=== PATIENT | male | born 1995 | race American Indian/Alaskan Native ===

== ENCOUNTER 2016-10-02 12:50 | Emergency (ER) | payer SELFPAY ==
[2016-10-02 14:03] VITALS: BP 135/81
== END 2016-10-02 20:24 | disposition left against medical advice (07) ==
LOC: ED 12:50
DX: A64 Unspecified sexually transmitted disease (principal); Z53.21 Procedure and treatment not carried out due to patient leaving prior to being seen by health care provider

== ENCOUNTER 2016-10-07 09:57 | Emergency (ER) | payer SELFPAY ==
[2016-10-07 10:05] VITALS: BP 135/80
--- NOTE | 2016-10-07 10:20 | Emergency Department Report ---
ED Dysuria HPI - HPI Chief Complaint: Urogenital-Male Stated Complaint: POSS STD Time Seen by Provider: 10/07/16 10:17 Duration: 2 Days Location of Discomfort: Urethra (dysuria) Severity: Mild Symptoms: Dysuria: Yes, Frequency: No, Suprapubic Pain: No, Flank Pain: No, Fever: No, Hematuria: No, Abdominal Pain: No, Previous UTI's: No ED Review of Systems ROS: Stated complaint: POSS STD Other details as noted in HPI Comment: All other systems reviewed and negative Constitutional: no symptoms reported Eyes: as per HPI ENT: as per HPI Respiratory: no symptoms reported Cardiovascular: as per HPI Endocrine: no symptoms reported Gastrointestinal: as per HPI. denies: abdominal pain, nausea, vomiting, diarrhea, constipation, hematemesis, melena, hematochezia Genitourinary: as per HPI, dysuria, discharge (white), other (1 partner, she will not talk to him about std). denies: urgency, frequency, hematuria, testicular pain, testicular mass Musculoskeletal: as per HPI. denies: back pain, joint swelling Skin: as per HPI. denies: rash, lesions Neurological: as per HPI. denies: headache, weakness Psychiatric: as per HPI. denies: anxiety, depression Hematological/Lymphatic: as per HPI. denies: easy bleeding ED Past Medical Hx - Past Medical History Previous Medical History?: No - Surgical History Past Surgical History?: No Additional Surgical History: CYST REMOVED LEFT WRIST - Family History Family history: no significant - Social History Smoking Status: Never Smoker Substance Use Type: Alcohol, Marijuana - Medications Home Medications: Home Medications Medication Instructions Recorded Confirmed Last Taken Type No Known Home Medications [No 10/02/16 10/07/16 Unknown History Reported Home Medications] Dysuria Exam - Exam General: Vital signs noted. No distress. Alert and acting appropriately. Exam: No Moist Mucous Membranes, No CVA Tenderness, No Abdominal Tenderness, No Rigidity or Guarding Exam: ua noted ED Course Vital Signs 10/07/16 10:02 Temperature 98.2 F Pulse Rate 93 H Respiratory 17 Rate Blood Pressure 135/80 O2 Sat by Pulse 100 Oximetry - Reevaluation(s) Reevaluation #1: 10/07/16 10:58 dysuria white dc no testicular or abd pain no back pain no cva tenderness 1 sex partner female no fever non ill or non septic appearing ED Medical Decision Making - Differential Diagnosis uti, k stone, vs std Critical care attestation.: If time is entered above; I have spent that time in minutes in the direct care of this critically ill patient, excluding procedure time. ED Disposition Clinical Impression: STD (male), Dysuria Disposition: DC-01 TO HOME OR SELFCARE Is pt being admited?: No Does the pt Need Aspirin: No Condition: Stable Instructions: Safe Sex (ED), Sexually Transmitted Diseases (ED), Sexually Transmitted Diseases in Adolescents (ED) Additional Instructions: safe sex Referrals: PRIMARY CARE, [Primary Care Provider] - 3-5 Days Time of Disposition: 11:00
[2016-10-07 10:53] LABS: Bilirubin,Urine NEG (Negative); Blood,Urine LG (Negative); Ketones,Urine NEG (Negative); Leukocyte Esterase,Urine LG (Negative); Mucus,Urine 1+ /HPF; Nitrite,Urine POS (Negative); RBC,Urine > 182.0 /HPF (0.0-6.0); Urobilinogen,Urine < 2.0 mg/dL (<2.0)
[2016-10-07] MEDS ORDERED: ZITHROMAX PO ONE (10:56)
[2016-10-07] MEDS ORDERED: XYLOCAINE 1% MPF 5 mL INFILTRATI ONE (10:56)
[2016-10-07] MEDS ORDERED: ROCEPHIN IM ONE (10:56)
== END 2016-10-07 11:25 | disposition home or self-care (01) ==
LOC: ED 09:57
DX: A64 Unspecified sexually transmitted disease (principal); R30.0 Dysuria; F12.10 Cannabis abuse, uncomplicated
CPT/HCPCS: 81001; 87591; 96372; 99283; J0696